=== PATIENT | male | born 1975 | race African-American/Black ===

== ENCOUNTER 2020-05-01 11:59 | Emergency (ER) | payer SELFPAY ==
[~2020-05-01] VITALS: Ht 180.3 cm; Wt 90.7 kg
--- NOTE | 2020-05-01 12:15 | NUR ---
ED Nurse Note: Pt ambulated to ED d/t lower back pain and hematuria started yesterday. Pt is AOx4, calm and cooperative, per pt he has hx of HIV. Pt denies any nausea/vomiting/diarrhea nor chills. Placed on bed and gown; safety measures in placed. VSS, satting at 99% on RA.
--- NOTE | 2020-05-01 12:22 | Emergency Room Report ---
History of Present Illness General Chief Complaint: Back Pain-No Injury Source: Patient Present Illness HPI Disclaimer: Please note that this report is being documented using DRAGON technology. This can lead to erroneous entry secondary to incorrect interpretation by the dictating instrument. HPI: 44-year-old male presents for evaluation of right-sided flank pain. Symptoms have been present for approximately 2 weeks. He denies injury and notes a dull aching over the right flank which is been steadily increasing. It does not radiate down to the groin or other place. He denies abdominal pain, nausea, vomiting, diarrhea. He reports a loss of appetite and intermittent night sweats. States he was recently diagnosed with HIV but not started on any medication. He states this was done at [facility] and that he is a [facility] patient. He reported some dark blood-tinged urine earlier today and sought medical attention. He denies pain in the penis or testicles. Denies groin trauma. Denies numbness, tingling in the legs. Does not inject any drugs or medication. Denies pain in the midline in the back. PMH: HIV PSH: Reviewed Allergies: Denies Social Hx: Denies Allergies: Coded Allergies: No Known Allergies (Unverified , 05/01/20) COVID-19 Screening Contact w/high risk pt: No Recent Travel to affected area: No Experienced COVID-19 symptoms?: No COVID-19 Testing performed CHIEF WARDEN: No Nursing Documentation-PMH Past Medical History: No History, Except For Hx Hypertension: Yes Review of Systems All Other Systems: negative except mentioned in HPI Physical Exam Vital Signs Date Time Temp Pulse Resp B/P (MAP) Pulse Ox O2 Delivery O2 Flow Rate FiO2 05/01/20 12:02 98.2 121 22 112/76 (88) 95 Room Air General: Awake and alert, anxious appearing HEENT: NC/AT. EOMI. Neck: Supple, trachea midline Chest Wall: No tenderness, no deformity Cardiovascular: Tachycardic S1 and S2 normal. No murmur appreciated Resp: Normal work of breathing. No cough, wheezing or crackles appreciated Abdomen: Abdomen is soft, nondistended. Nontender Skin: Intact. No abrasions, laceration or rash over the exposed skin MSK: Normal tone and bulk. Moving all extremities. No obvious deformity. Ambulating without difficulty. Strength is 5/5 in the hips, knees and pelvis. Neuro: Awake and alert. Mentating appropriately. Back/Spine: No midline tenderness in the cervical, thoracic or lumbosacral spine. Medical Decision Making Diagnostic Impression: Primary Impression: Pyelonephritis ER Course 44-year-old male with a reported recent diagnosis of HIV not currently in antivirals presents for evaluation of flank pain. Concern for UTI, pyelonephritis, back strain/spasm. No evidence of testicular torsion. The patient arrives with vital signs within normal limits, afebrile, overall no acute distress. Labs show an elevated hemoglobin level 18.2 just at the upper limit of normal but otherwise differential within normal limits. Chemistry shows normal renal function hepatic function without other acute findings. Urinalysis shows blood, ketones, positive leukocyte esterase and 10-15 white cells per high-power field. May be UTI and the patient symptoms would correlate better with pyelonephritis given his right-sided flank pain. Will treat with ciprofloxacin. IV dose given in the ED and prescription written for oral Cipro. Will follow with his doctors at [facility]. Also referred him to STD testing to check his HIV status Laboratory Tests Test 05/01/20 12:25 05/01/20 13:30 White Blood Count 7.0 K/UL (4.8-10.8) Red Blood Count 6.60 M/UL (4.70-6.10) H Hemoglobin 18.2 G/DL (14.2-18.0) *H Hematocrit 57.0 % (42.0-52.0) H Mean Corpuscular Volume 86 FL (80-99) Mean Corpuscular Hemoglobin 27.6 PG (27.0-31.0) Mean Corpuscular Hemoglobin Concent 32.0 G/DL (32.0-36.0) Red Cell Distribution Width 12.2 % (11.6-14.8) Platelet Count 410 K/UL (150-450) Mean Platelet Volume 7.2 FL (6.5-10.1) Neutrophils (%) (Auto) 45.3 % (45.0-75.0) Lymphocytes (%) (Auto) 44.1 % (20.0-45.0) Monocytes (%) (Auto) 4.8 % (1.0-10.0) Eosinophils (%) (Auto) 4.6 % (0.0-3.0) H Basophils (%) (Auto) 1.2 % (0.0-2.0) Sodium Level 139 MMOL/L (136-145) Potassium Level 4.6 MMOL/L (3.5-5.1) Chloride Level 100 MMOL/L (98-107) Carbon Dioxide Level 29 MMOL/L (21-32) Anion Gap 11 mmol/L (5-15) Blood Urea Nitrogen 22 mg/dL (7-18) H Creatinine 1.3 MG/DL (0.55-1.30) Estimated Glomerular Filtration Rate > 60 mL/min (>60) Glucose Level 113 MG/DL (74-106) H Calcium Level 9.0 MG/DL (8.5-10.1) Total Bilirubin 1.0 MG/DL (0.2-1.0) Aspartate Amino Transferase (AST) 17 U/L (15-37) Alanine Aminotransferase (ALT) 23 U/L (12-78) Alkaline Phosphatase 84 U/L (46-116) Total Protein 8.8 G/DL (6.4-8.2) H Albumin 4.7 G/DL (3.4-5.0) Globulin 4.1 g/dL Albumin/Globulin Ratio 1.1 (1.0-2.7) Lipase 141 U/L (73-393) Urine Color Yellow Urine Appearance Clear Urine pH 5 (4.5-8.0) Urine Specific [place] 1.020 (1.005-1.035) Urine Protein 2+ (NEGATIVE) H Urine Glucose (UA) Negative (NEGATIVE) Urine Ketones 4+ (NEGATIVE) H Urine Blood 1+ (NEGATIVE) H Urine Nitrite Negative (NEGATIVE) Urine Bilirubin Negative (NEGATIVE) Urine Urobilinogen 1 MG/DL (0.0-1.0) H Urine Leukocyte Esterase 1+ (NEGATIVE) H Urine RBC 0-2 /HPF (0 - 0) H Urine WBC 10-15 /HPF (0 - 0) H Urine Squamous Epithelial Cells Occasional /LPF Urine Bacteria Occasional /HPF (NONE) Last Vital Signs Date Time Temp Pulse Resp B/P (MAP) Pulse Ox O2 Delivery O2 Flow Rate FiO2 05/01/20 12:02 98.2 121 22 112/76 (88) 95 Room Air Disposition: HOME, SELF-CARE Condition: Stable Scripts Ciprofloxacin Hcl* (CIPROFLOXACIN HCL*) 500 Mg Tablet 500 MG ORAL Q12H for 7 Days, #14 TAB 0 Refills Prov: Miguel Hussein MD 05/01/20 Miguel Hussein MD May 01, 2020 12:22
[2020-05-01 12:43] LABS: BASOPHILS % (AUTO) 1.2 % (0.0-2.0); EOSINOPHILS % (AUTO) 4.6 % (0.0-3.0); LYMPHOCYTES % (AUTO) 44.1 % (20.0-45.0); MEAN CORPUSCULAR VOLUME 86 FL (80-99); MONOCYTES % (AUTO) 4.8 % (1.0-10.0); NEUTROPHILS % (AUTO) 45.3 % (45.0-75.0); PLATELET COUNT 410 K/UL (150-450); RED CELL DISTRIBUTION WIDTH 12.2 % (11.6-14.8)
[2020-05-01 12:46] LABS: HEMOGLOBIN 18.2 G/DL (14.2-18.0)
[2020-05-01 13:00] VITALS: BP 112/76
[2020-05-01 13:02] LABS: ANION GAP 11 mmol/L (5-15); BLOOD UREA NITROGEN 22 mg/dL (7-18); CARBON DIOXIDE 29 MMOL/L (21-32); CHLORIDE 100 MMOL/L (98-107); CREATININE 1.3 MG/DL (0.55-1.30); POTASSIUM 4.6 MMOL/L (3.5-5.1); SODIUM 139 MMOL/L (136-145)
[2020-05-01 13:14] LABS: ALANINE AMINOTRANSFERASE 23 U/L (12-78); ALBUMIN 4.7 G/DL (3.4-5.0); ALBUMIN/GLOBULIN RATIO 1.1 (1.0-2.7); ALKALINE PHOSPHATASE 84 U/L (46-116); ASPARTATE AMINO TRANSFERASE 17 U/L (15-37)
[2020-05-01 13:54] LABS: APPEARANCE,URINE CLEAR; BILIRUBIN, URINE NEGATIVE (NEGATIVE); GLUCOSE, URINE (UA) NEGATIVE (NEGATIVE); KETONES,URINE 4+ (NEGATIVE); LEUKOCYTE ESTERASE ,URINE 1+ (NEGATIVE); NITRITE,URINE NEGATIVE (NEGATIVE); PH,URINE 5 (4.5-8.0); PROTEIN,URINE 2+ (NEGATIVE); UROBILINOGEN,URINE 1 MG/DL (0.0-1.0)
[2020-05-01 13:59] LABS: COLOR,URINE YELLOW
[2020-05-01] MEDS ORDERED: CIPROFLOXACIN500 M2 ORAL (14:26)
[2020-05-01] MEDS ORDERED: CIPROFLOXACIN 200 MG IV ONE (14:28)
[2020-05-01 15:46] VITALS: BP_SYST 115; BP_SYST 118; BP_DIAS 75; BP_DIAS 76
--- NOTE | 2020-05-01 15:46 | NUR ---
ER DISCHARGE NOTE: Patient is cleared to be discharged per ERMD, pt is aox4, on room air, with stable vital signs. pt was given dc and prescription instructions, pt was able to verbalize understanding, pt id band and iv site removed without complications. pt is able to ambulate with steady gait. pt took all belongings.
== END 2020-05-01 15:46 | disposition home or self-care (01) ==
LOC: EMR 12:28
DX: N12 Tubulo-interstitial nephritis, not specified as acute or chronic (principal); B20 Human immunodeficiency virus [HIV] disease; I10 Essential (primary) hypertension
CPT/HCPCS: 36415; 80053; 81003; 83690; 85025; 87086; 96365; 99284; J0744